=== PATIENT | female | born 1950 | race Caucasian/White ===

== ENCOUNTER → 2017-02-11 | Outpatient (CLI) | payer MEDICARE, BC ==
--- NOTE | 2017-02-11 12:53 | KCIC ---
MR of the right shoulder Indication: Right shoulder pain. Pain in recent weeks. Patient fell in December. Technique: Standard multiplanar sequences are obtained. Findings: Acromioclavicular joint: Mildly degenerative. Mild undersurface hypertrophy and mass effect. Rotator cuff: Complete full-thickness rupture of supraspinatus tendon and anterior infraspinatus tendon, measures 3.5 cm AP diameter. Severe retraction to the level of the superior glenoid. Severe muscle volume loss with moderate fatty infiltration. Subscapularis tendinosis with partial tear. Mild fluid enters the subdeltoid bursa. Glenohumeral joint: Small effusion. Labrum: Suboptimal exam due to motion, no definite attachment. Biceps tendon: Intact Bones: Small cysts at the greater tuberosity. No aggressive bone destruction or acute fracture. Soft tissue: No acute findings. Impression: 1. Large rotator cuff tear. Complete rupture of supraspinatus and anterior infraspinatus tendon with retraction and atrophy. Partial subscapularis tendon tear. 2. 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 Electronically signed by: Fausto Thomas MD (02/11/2017 12:50 PM)
== END | disposition home or self-care (01) ==
LOC: KCIC MRI 08:23
PROVIDERS: ATTEND Orthopaedic Surgery
DX: M19.011 Primary osteoarthritis, right shoulder (principal); M25.411 Effusion, right shoulder
CPT/HCPCS: 73221